=== PATIENT | female | born 1940 | race Caucasian/White ===

== ENCOUNTER 2017-04-25 15:48 | Inpatient (IN) | payer MEDICARE ==
[~2017-04-25] VITALS: Ht 162.6 cm; Wt 59.2 kg
[~2017-04-25 15:48] MED LIST: FOLI0.4T2 PO; HYDR-3237 PO; HYDR-3240 PO; HYDR25TA6 PO; OLME20TA19 PO; POTA20TA91 PO
[2017-04-25] MEDS ORDERED: SODIUM CHLORIDE 0.9% 1,000 ML IV ONE (15:58)
[2017-04-25] MEDS ORDERED: SODIUM CHLORIDE FLUSH 10ML SYR IVF ONE (16:00)
[2017-04-25] MEDS ORDERED: NEBI5TAB2 PO (16:10)
[2017-04-25] MEDS ORDERED: CLON0.1T PO (16:10)
[2017-04-25] MEDS ORDERED: SACU1TAB PO (16:10)
[2017-04-25 16:36] LABS: HEMATOCRIT 36.9 % (34.6-47.8); HEMOGLOBIN 12.1 g/dL (11.7-16.4); WHITE BLOOD COUNT 9.2 x10^3/uL (3.4-10)
[2017-04-25 16:54] LABS: ASPARTATE AMINO TRANSFERASE 21 U/L (15-37); BLOOD UREA NITROGEN 25 mg/dL (7-18)
[2017-04-25] MEDS ORDERED: BISACODYL 10 MG SUPP PR PRN (18:00)
[2017-04-25] MEDS ORDERED: ACETAMINOPHEN 325 MG TABLET PO PRN (18:00)
[2017-04-25] MEDS ORDERED: POLYETHYLENE GLYCOL 17 GM PACKET PO PRN (18:00)
[2017-04-25] MEDS ORDERED: MORPHINE SULFATE 4 MG/ML, 1ML ONE ×2 (19:13→22:20)
[2017-04-25] MEDS ORDERED: HEPARIN 5,000 UNITS/ML, 1ML ONE (19:13)
[2017-04-25] MEDS: HEPARIN 5,000 UNITS/ML, 1ML SQ SCH (19:22)
[2017-04-25] MEDS: morphine SULFATE 10 MG/ML, 1ML IVPush PRN ×2 (19:22→22:22)
[2017-04-25 20:49] VITALS: BP 178/67
[2017-04-25] MEDS: SACUBITRIL/VALSARTAN 24MG-26MG TAB PO SCH (21:12)
[2017-04-25] MEDS ORDERED: PLEASE ENTER HEIGHT AND WEIGHT MC SCH (21:30)
[2017-04-25] MEDS: SODIUM CHLORIDE FLUSH 10ML SYR IVF SCH (22:27)
[2017-04-25 22:52] LABS: PATH.CAST-FLAG NOT PRESENT; SPERM-FLAG NOT PRESENT; SRC-FLAG NOT PRESENT; XTAL-FLAG NOT PRESENT; YLC-FLAG NOT PRESENT
[2017-04-26 01:32] VITALS: BP 157/56
[2017-04-26] MEDS ORDERED: MORPHINE SULFATE 4 MG/ML, 1ML ONE ×2 (02:27→06:18)
[2017-04-26] MEDS: morphine SULFATE 10 MG/ML, 1ML IVPush PRN ×7 (02:31→23:55)
[2017-04-26] MEDS: HEPARIN 5,000 UNITS/ML, 1ML SQ SCH ×3 (02:35→23:28)
[2017-04-26 05:21] LABS: BLOOD UREA NITROGEN 18 mg/dL (7-18)
[2017-04-26 05:24] LABS: ASPARTATE AMINO TRANSFERASE 20 U/L (15-37)
[2017-04-26 07:42] VITALS: BP 137/63
[2017-04-26] MEDS: SODIUM CHLORIDE FLUSH 10ML SYR IVF SCH ×2 (09:00→20:50)
[2017-04-26] MEDS: NEBIVOLOL HCL 5 MG TABLET PO SCH (09:25)
[2017-04-26] MEDS: SENNA/DOCUSATE TABLET PO SCH (09:25)
[2017-04-26] MEDS: HYDROCHLOROTHIAZIDE 25 MG TABLET PO SCH (09:25)
[2017-04-26] MEDS: SACUBITRIL/VALSARTAN 24MG-26MG TAB PO SCH (10:07)
[2017-04-26 15:30] VITALS: BP 178/69
[2017-04-26 19:11] VITALS: BP 145/61
[2017-04-27 03:43] VITALS: BP 102/58
[2017-04-27 05:16] LABS: HEMATOCRIT 32.3 % (34.6-47.8); HEMOGLOBIN 10.8 g/dL (11.7-16.4); WHITE BLOOD COUNT 7.3 x10^3/uL (3.4-10)
[2017-04-27 05:32] LABS: ASPARTATE AMINO TRANSFERASE 22 U/L (15-37); BLOOD UREA NITROGEN 17 mg/dL (7-18)
[2017-04-27 07:14] VITALS: BP 146/58
[2017-04-27] MEDS: HEPARIN 5,000 UNITS/ML, 1ML SQ SCH ×3 (08:00→23:48)
[2017-04-27] MEDS: morphine SULFATE 10 MG/ML, 1ML IVPush PRN ×2 (09:01→23:44)
[2017-04-27] MEDS: HYDROCHLOROTHIAZIDE 25 MG TABLET PO SCH (09:03)
[2017-04-27] MEDS: SENNA/DOCUSATE TABLET PO SCH (09:03)
[2017-04-27] MEDS: SODIUM CHLORIDE FLUSH 10ML SYR IVF SCH ×2 (09:03→20:44)
[2017-04-27] MEDS: NEBIVOLOL HCL 5 MG TABLET PO SCH (09:05)
[2017-04-27] MEDS: SACUBITRIL/VALSARTAN 24MG-26MG TAB PO SCH (09:05)
[2017-04-27] MEDS ORDERED: LIDOCAINE 1%, 20ML ONE (09:22)
[2017-04-27] MEDS ORDERED: FLUMAZENIL 0.1 MG/1 ML, 5ML ONE (09:52)
[2017-04-27] MEDS ORDERED: MIDAZOLAM 1 MG/ML, 5ML ONE ×2 (09:52)
[2017-04-27] MEDS ORDERED: NALOXONE 1 MG/ML, 2ML ONE (09:52)
[2017-04-27] MEDS ORDERED: FENTANYL PF 100 MCG/2ML ONE (09:52)
[2017-04-27 10:51] VITALS: BP 133/56
[2017-04-27 14:20] VITALS: BP 107/51
[2017-04-27] MEDS: PROMETHAZINE 25 MG/ML, 1ML IM PRN (18:14)
[2017-04-27 18:59] VITALS: BP 176/76
[2017-04-28 01:18] VITALS: BP 147/72
[2017-04-28 06:51] VITALS: BP 120/58
[2017-04-28] MEDS: morphine SULFATE 10 MG/ML, 1ML IVPush PRN ×4 (07:31→19:29)
[2017-04-28] MEDS: SENNA/DOCUSATE TABLET PO SCH (07:32)
[2017-04-28] MEDS: HYDROCHLOROTHIAZIDE 25 MG TABLET PO SCH (07:32)
[2017-04-28] MEDS: SACUBITRIL/VALSARTAN 24MG-26MG TAB PO SCH (07:32)
[2017-04-28] MEDS: HEPARIN 5,000 UNITS/ML, 1ML SQ SCH ×3 (07:32→23:04)
[2017-04-28] MEDS: SODIUM CHLORIDE FLUSH 10ML SYR IVF SCH ×2 (07:32→19:33)
[2017-04-28] MEDS: NEBIVOLOL HCL 5 MG TABLET PO SCH (07:33)
[2017-04-28 15:39] VITALS: BP 110/47
[2017-04-28 18:45] VITALS: BP 167/65
[2017-04-28] MEDS: PROMETHAZINE 25 MG/ML, 1ML IM PRN (20:40)
[2017-04-29 01:24] VITALS: BP 159/60
[2017-04-29] MEDS: morphine SULFATE 10 MG/ML, 1ML IVPush PRN ×7 (01:26→20:31)
[2017-04-29] MEDS: NEBIVOLOL HCL 5 MG TABLET PO SCH ×2 (08:10→08:15)
[2017-04-29] MEDS: SENNA/DOCUSATE TABLET PO SCH (08:10)
[2017-04-29 08:11] VITALS: BP 131/57
[2017-04-29] MEDS: HEPARIN 5,000 UNITS/ML, 1ML SQ SCH ×3 (08:14→23:00)
[2017-04-29] MEDS: HYDROCHLOROTHIAZIDE 25 MG TABLET PO SCH (08:14)
[2017-04-29] MEDS: SODIUM CHLORIDE FLUSH 10ML SYR IVF SCH ×2 (08:15→19:37)
[2017-04-29] MEDS: SACUBITRIL/VALSARTAN 24MG-26MG TAB PO SCH (08:18)
[2017-04-29 14:20] VITALS: BP 137/50
[2017-04-29 19:01] VITALS: BP 162/69
[2017-04-29] MEDS ORDERED: DIPHENHYDRAMINE 12.5MG/5ML, 10ML UDC PO PRN (22:30)
[2017-04-30 00:36] VITALS: BP 128/66
[2017-04-30] MEDS: morphine SULFATE 10 MG/ML, 1ML IVPush PRN ×5 (00:44→14:58)
[2017-04-30] MEDS: SODIUM CHLORIDE FLUSH 10ML SYR IVF SCH ×2 (08:37→19:53)
[2017-04-30] MEDS: HEPARIN 5,000 UNITS/ML, 1ML SQ SCH ×2 (08:37→14:59)
[2017-04-30] MEDS: SENNA/DOCUSATE TABLET PO SCH (08:38)
[2017-04-30] MEDS: SACUBITRIL/VALSARTAN 24MG-26MG TAB PO SCH ×2 (08:40→14:59)
[2017-04-30] MEDS: HYDROCHLOROTHIAZIDE 25 MG TABLET PO SCH (08:40)
[2017-04-30] MEDS: NEBIVOLOL HCL 5 MG TABLET PO SCH (08:41)
[2017-04-30 08:42] VITALS: BP 153/50
[2017-04-30] MEDS ORDERED: OXYcodone IR 5MG TABLET PO PRN (14:00)
[2017-04-30 14:59] VITALS: BP 172/83
[2017-04-30] MEDS ORDERED: ACETAMINOPHEN 325 MG TABLET PO PRN (16:30)
[2017-04-30] MEDS ORDERED: BISACODYL 10 MG SUPP PR PRN (16:30)
[2017-04-30] MEDS ORDERED: PROMETHAZINE 25 MG/ML, 1ML IM PRN (16:30)
[2017-04-30] MEDS ORDERED: POLYETHYLENE GLYCOL 17 GM PACKET PO PRN (16:30)
[2017-04-30] MEDS ORDERED: DIPHENHYDRAMINE 12.5MG/5ML, 10ML UDC PO PRN (16:30)
[2017-04-30] MEDS: OXYcodone IR 5MG TABLET PO PRN (19:53)
[2017-04-30 20:00] VITALS: BP 178/8
[2017-04-30 21:23] VITALS: BP 146/80
[2017-04-30] MEDS: LORazepam 0.5MG TABLET PO PRN (21:41)
[2017-05-01] MEDS: HEPARIN 5,000 UNITS/ML, 1ML SQ SCH ×4 (00:10→19:02)
[2017-05-01 02:10] VITALS: BP 162/68
[2017-05-01 05:43] VITALS: BP 159/73
[2017-05-01 06:58] VITALS: BP 121/65
[2017-05-01] MEDS: NEBIVOLOL HCL 5 MG TABLET PO SCH (08:26)
[2017-05-01] MEDS: SENNA/DOCUSATE TABLET PO SCH (08:27)
[2017-05-01] MEDS: HYDROCHLOROTHIAZIDE 25 MG TABLET PO SCH (08:28)
[2017-05-01] MEDS: SODIUM CHLORIDE FLUSH 10ML SYR IVF SCH ×2 (11:55→19:45)
[2017-05-01] MEDS: morphine SULFATE 10 MG/ML, 1ML IVPush PRN (11:55)
[2017-05-01 14:32] VITALS: BP 132/64
[2017-05-01] MEDS: OXYcodone IR 5MG TABLET PO PRN (16:56)
[2017-05-01 19:39] VITALS: BP 138/52
[2017-05-01] MEDS: SACUBITRIL/VALSARTAN 24MG-26MG TAB PO SCH (19:45)
[2017-05-01] MEDS: LORazepam 0.5MG TABLET PO PRN (19:52)
[2017-05-02] MEDS: OXYcodone IR 5MG TABLET PO PRN ×3 (00:28→22:27)
[2017-05-02 02:00] VITALS: BP 121/51
[2017-05-02 04:44] LABS: HEMATOCRIT 34.1 % (34.6-47.8); HEMOGLOBIN 11.2 g/dL (11.7-16.4); WHITE BLOOD COUNT 9.7 x10^3/uL (3.4-10)
[2017-05-02 04:52] LABS: BLOOD UREA NITROGEN 13 mg/dL (7-18)
[2017-05-02 04:57] LABS: ASPARTATE AMINO TRANSFERASE 20 U/L (15-37)
[2017-05-02 07:45] VITALS: BP 121/58
[2017-05-02] MEDS: HEPARIN 5,000 UNITS/ML, 1ML SQ SCH ×2 (08:00→17:27)
[2017-05-02] MEDS: NEBIVOLOL HCL 5 MG TABLET PO SCH (09:19)
[2017-05-02] MEDS: SENNA/DOCUSATE TABLET PO SCH (09:20)
[2017-05-02] MEDS: HYDROCHLOROTHIAZIDE 25 MG TABLET PO SCH (09:22)
[2017-05-02] MEDS: SODIUM CHLORIDE FLUSH 10ML SYR IVF SCH ×2 (09:23→20:00)
[2017-05-02] MEDS ORDERED: LIDOCAINE 1%, 20ML ONE (11:34)
[2017-05-02] MEDS ORDERED: NALOXONE 1 MG/ML, 2ML ONE (12:13)
[2017-05-02] MEDS ORDERED: FLUMAZENIL 0.1 MG/1 ML, 5ML ONE (12:13)
[2017-05-02] MEDS ORDERED: MIDAZOLAM 1 MG/ML, 5ML ONE (12:13)
[2017-05-02] MEDS ORDERED: FENTANYL PF 100 MCG/2ML ONE (12:13)
[2017-05-02 14:05] VITALS: BP 143/62
[2017-05-02 19:52] VITALS: BP 112/57
[2017-05-02] MEDS: SACUBITRIL/VALSARTAN 24MG-26MG TAB PO SCH (20:03)
[2017-05-03] MEDS: HEPARIN 5,000 UNITS/ML, 1ML SQ SCH ×3 (00:21→17:07)
[2017-05-03 01:53] VITALS: BP 123/63
[2017-05-03 08:00] VITALS: BP 115/43
[2017-05-03] MEDS ORDERED: SENNA/DOCUSATE TABLET PO SCH (09:00)
[2017-05-03] MEDS: HYDROCHLOROTHIAZIDE 25 MG TABLET PO SCH (09:40)
[2017-05-03] MEDS: SODIUM CHLORIDE FLUSH 10ML SYR IVF SCH (09:40)
[2017-05-03] MEDS: NEBIVOLOL HCL 5 MG TABLET PO SCH (09:41)
[2017-05-03 12:55] VITALS: BP 96/54
[2017-05-03] MEDS ORDERED: MORP15TA3 PO (16:20)
[2017-05-03] MEDS ORDERED: TRAM50TA2 PO (16:33)
[2017-05-03] MEDS: SACUBITRIL/VALSARTAN 24MG-26MG TAB PO SCH (17:06)
== END 2017-05-03 20:05 | disposition home or self-care (01) | DRG 356 ==
LOC: ED 17:12 → EDIP 17:13 → ED 17:14 → 3NW 20:45
PROVIDERS: ADMIT Hospitalist; ATTEND Hospitalist
PROC: 0WBF3ZX Excision of Abdominal Wall, Percutaneous Approach, Diagnostic (ICD-10-PCS; principal; 2017-04-27)
PROC: 0WBF3ZX Excision of Abdominal Wall, Percutaneous Approach, Diagnostic (ICD-10-PCS; 2017-05-02)
DX: C78.6 Secondary malignant neoplasm of retroperitoneum and peritoneum (principal); N17.0 Acute kidney failure with tubular necrosis; E44.1 Mild protein-calorie malnutrition; E87.1 Hypo-osmolality and hyponatremia; R19.01 Right upper quadrant abdominal swelling, mass and lump; I25.5 Ischemic cardiomyopathy; I25.10 Atherosclerotic heart disease of native coronary artery without angina pectoris; R00.1 Bradycardia, unspecified; I44.7 Left bundle-branch block, unspecified; E78.5 Hyperlipidemia, unspecified; I10 Essential (primary) hypertension; M81.0 Age-related osteoporosis without current pathological fracture; Z66 Do not resuscitate; Z82.3 Family history of stroke; Z83.3 Family history of diabetes mellitus; Z85.528 Personal history of other malignant neoplasm of kidney; Z68.22 Body mass index [BMI] 22.0-22.9, adult; Z88.8 Allergy status to other drugs, medicaments and biological substances; Z88.1 Allergy status to other antibiotic agents; Z91.011 Allergy to milk products; Z90.710 Acquired absence of both cervix and uterus
CPT/HCPCS: 36415; 49180; 71250; 74176; 76700; 77012; 78306; 80053; 81001; 83690; 85025; 85610; 87086; 88112; 88305; 88341; 88342; 93005; 96360; 96361; 99156; 99157; J1644; J2250; J2550; J3010; J3490; A9503; C9898; G0461; J2270; J2310; J7030

== ENCOUNTER 2017-05-14 11:05 | Inpatient (IN) | payer MEDICARE ==
[~2017-05-14] VITALS: Ht 162.6 cm; Wt 61.9 kg
[~2017-05-14 11:05] MED LIST changes: +CLON0.1T PO; +MORP15TA3 PO; +NEBI5TAB2 PO; +SACU1TAB PO; +TRAM50TA2 PO
[2017-05-14] MEDS ORDERED: SODIUM CHLORIDE FLUSH 10ML SYR IVF ONE (12:00)
[2017-05-14] MEDS ORDERED: SODIUM CHLORIDE 0.9% 1,000ML IVBOLUS ONE (12:00)
[2017-05-14 12:18] LABS: HEMATOCRIT 33.4 % (34.6-47.8); HEMOGLOBIN 11.1 g/dL (11.7-16.4); WHITE BLOOD COUNT 16.2 x10^3/uL (3.4-10)
[2017-05-14 12:32] LABS: ASPARTATE AMINO TRANSFERASE 37 U/L (15-37); BLOOD UREA NITROGEN 33 mg/dL (7-18)
[2017-05-14] MEDS ORDERED: HYDROmorphone 1 MG/ML, 1ML ONE ×2 (12:59→15:37)
[2017-05-14] MEDS: HYDROmorphone 1 MG/ML, 1ML IVPush PRN ×2 (13:01→15:40)
[2017-05-14 16:30] VITALS: BP 104/58
[2017-05-14] MEDS ORDERED: NS + 20MEQ KCL 1,000 ML IV SCH (16:45)
[2017-05-14] MEDS ORDERED: METOCLOPRAMIDE 5 MG/ML, 2ML IVPush PRN ×2 (17:00→21:30)
[2017-05-14] MEDS ORDERED: morphine SULFATE 10 MG/ML, 1ML IVPush PRN ×2 (17:00→21:30)
[2017-05-14] MEDS ORDERED: LORazepam 1MG TABLET PO PRN ×2 (17:00→21:30)
[2017-05-14] MEDS ORDERED: POLYETHYLENE GLYCOL 17 GM PACKET PO PRN ×2 (17:00→21:30)
[2017-05-14] MEDS ORDERED: HYDROcodone/APAP 5/325 TABLET PO PRN (17:00)
[2017-05-14] MEDS ORDERED: ACETAMINOPHEN 325 MG TABLET PO PRN ×2 (17:00→21:30)
[2017-05-14] MEDS ORDERED: PROMETHAZINE 25 MG/ML, 1ML IM PRN (17:00)
[2017-05-14] MEDS ORDERED: DOCUSATE 100 MG CAPSULE PO PRN ×2 (17:00→21:30)
[2017-05-14 18:58] VITALS: BP 98/57
[2017-05-14] MEDS: ENOXAPARIN 30 MG/0.3 ML SQ SCH (19:51)
[2017-05-15] MEDS: HYDROcodone/APAP 5/325 TABLET PO PRN ×2 (02:23→08:26)
[2017-05-15 03:56] VITALS: BP 120/51
[2017-05-15 08:03] VITALS: BP 131/59
[2017-05-15] MEDS: HYDROCHLOROTHIAZIDE 25 MG TABLET PO SCH (08:26)
[2017-05-15] MEDS: NEBIVOLOL HCL 5 MG TABLET PO SCH (08:26)
[2017-05-15] MEDS ORDERED: SENNA/DOCUSATE TABLET PO SCH ×2 (09:00)
[2017-05-15] MEDS ORDERED: HYDROCHLOROTHIAZIDE 25 MG TABLET PO SCH (09:00)
[2017-05-15 13:45] VITALS: BP 114/58
[2017-05-15 19:48] VITALS: BP 103/63
[2017-05-15] MEDS: ENOXAPARIN 30 MG/0.3 ML SQ SCH (20:17)
[2017-05-15] MEDS ORDERED: SACUBITRIL/VALSARTAN 24MG-26MG TAB HOMEMEDPO SCH (21:00)
[2017-05-16 02:21] VITALS: BP 136/58
[2017-05-16 08:00] VITALS: BP 128/62
[2017-05-16] MEDS: NEBIVOLOL HCL 5 MG TABLET PO SCH (08:34)
[2017-05-16] MEDS: HYDROCHLOROTHIAZIDE 25 MG TABLET PO SCH (08:34)
[2017-05-16] MEDS: HYDROcodone/APAP 5/325 TABLET PO PRN ×2 (08:34→14:00)
[2017-05-16] MEDS ORDERED: SENNA/DOCUSATE TABLET PO SCH (09:00)
[2017-05-16] MEDS ORDERED: MORP15TA3 PO (14:11)
[2017-05-16 14:43] VITALS: BP 154/80
== END 2017-05-16 19:15 | disposition hospice, home (50) | DRG 682 ==
LOC: ED 12:10 → EDIP 15:52 → 4NOR 18:05
PROVIDERS: ADMIT Family Medicine; ATTEND Family Medicine
DX: N17.0 Acute kidney failure with tubular necrosis (principal); E43 Unspecified severe protein-calorie malnutrition; I42.9 Cardiomyopathy, unspecified; C64.9 Malignant neoplasm of unspecified kidney, except renal pelvis; E86.0 Dehydration; E87.1 Hypo-osmolality and hyponatremia; D47.3 Essential (hemorrhagic) thrombocythemia; G89.3 Neoplasm related pain (acute) (chronic); E78.00 Pure hypercholesterolemia, unspecified; E78.5 Hyperlipidemia, unspecified; I10 Essential (primary) hypertension; I25.10 Atherosclerotic heart disease of native coronary artery without angina pectoris; Z51.5 Encounter for palliative care; Z66 Do not resuscitate; Z83.3 Family history of diabetes mellitus; Z85.118 Personal history of other malignant neoplasm of bronchus and lung; Z85.528 Personal history of other malignant neoplasm of kidney; Z87.440 Personal history of urinary (tract) infections; Z90.5 Acquired absence of kidney; Z90.721 Acquired absence of ovaries, unilateral; Z88.8 Allergy status to other drugs, medicaments and biological substances; Z88.1 Allergy status to other antibiotic agents; Z91.011 Allergy to milk products; Z60.2 Problems related to living alone
CPT/HCPCS: 36415; 74022; 74176; 80053; 81003; 83690; 83880; 84484; 85025; 93005; 96361; 96374; 96376; J1170; J1650; J3480; J2270; J2765; J7030